=== PATIENT | female | born 1945 | race Caucasian/White ===

== ENCOUNTER 2017-01-19 08:52 | Day surgery (SDC) | payer MEDICARE, OTHER ==
[~2017-01-19] VITALS: Ht 165.1 cm; Wt 51.4 kg
[2017-01-19] VITALS (8 sets, daily range): BP systolic 107–131; BP diastolic 56–74; PULSE 75–84; TEMP 97.5–97.7
[2017-01-19] MEDS ORDERED: K-TAB10 PO (09:29)
[2017-01-19 10:15] LABS: MEAN CELL VOLUME 82 fl (80.0-100.0); MEAN CORPUSCULAR HGB CONC 32 g/dl (33.0-37.0); MEAN PLATELET VOLUME 8.4 fl (7.4-10.4); PLATELET COUNT 334 K/mm3 (130-400); RED BLOOD COUNT 3.95 M/mm3 (4.10-5.30); REDCELL DISTRIBUTION WIDTH-CV 16.8 % (11.5-14.5); WHITE BLOOD COUNT 10.7 K/mm3 (4.8-10.8)
[2017-01-19 10:16] LABS: HEMATOCRIT 32.4 % (37.0-47.0); HEMOGLOBIN 10.3 g/dl (12.5-16.0); MEAN CORPUSCULAR HEMOGLOBIN 26 pg (27.0-31.0)
[2017-01-19 10:22] LABS: INR 1.3 (0.8-3.0); PROTHROMBIN TIME 14.2 SECONDS (9.7-12.8)
[2017-01-19 10:24] LABS: PARTIAL THROMBOPLASTIN TIME 31.4 SECONDS (26.0-37.0)
[2017-01-19 10:28] LABS: CALCIUM 9.1 mg/dL (8.4-10.2); CREATININE, serum 0.78 mg/dL (0.52-1.25); POTASSIUM 4.4 mmol/L (3.4-5.0)
[2017-01-19] MEDS ORDERED: LASIX 20MG TABL20 MG PO (13:31)
[2017-01-19] MEDS ORDERED: PRILOSEC 20MG20 MG PO (13:32)
[2017-01-19] MEDS ORDERED: LIPITOR 40MG TA40 MG PO (13:33)
[2017-01-19] MEDS ORDERED: SYNTHROID0.125 MG/T PO (13:33)
[2017-01-19] MEDS ORDERED: MIRALAX PA17 GM/Dose PO (13:33)
[2017-01-19] MEDS ORDERED: NATURAL IRON65 MG PO (13:34)
[2017-01-19] MEDS ORDERED: PROAIR HFA0.09 MG/AC IH (13:36)
[2017-01-19] MEDS ORDERED: MAG-OX 400400 MG/TAB PO (13:36)
[2017-01-19] MEDS ORDERED: GLUCOPHAGE500 MG/TAB PO (13:37)
[2017-01-19] MEDS ORDERED: NORCO 325 MG-51 TAB PO (13:37)
[2017-01-19] MEDS ORDERED: CARAFATE 1GM1 G PO (13:38)
[2017-01-19] MEDS ORDERED: NITROSTAT0.4 MG/TAB SL (13:39)
[2017-01-19] MEDS ORDERED: LIDODERM 5% PATC1 EA TP (13:40)
== END 2017-01-19 18:15 | disposition home or self-care (01) ==
LOC: COL.CAR 08:52 → MEDICAL 08:54 → COL.CAR 18:15
PROVIDERS: Internal Medicine Interventional Cardiology
DX: I25.10 Atherosclerotic heart disease of native coronary artery without angina pectoris (principal); I21.4 Non-ST elevation (NSTEMI) myocardial infarction; I11.0 Hypertensive heart disease with heart failure; I50.9 Heart failure, unspecified; E03.9 Hypothyroidism, unspecified; E11.9 Type 2 diabetes mellitus without complications; J44.9 Chronic obstructive pulmonary disease, unspecified; E78.5 Hyperlipidemia, unspecified; Z87.891 Personal history of nicotine dependence
CPT/HCPCS: OP; C1760; C1887; C1894; J2250; J3010; Q9967

== ENCOUNTER 2017-05-23 13:27 | Inpatient (IN) | payer MEDICARE, OTHER ==
[~2017-05-23] VITALS: Ht 165.1 cm; Wt 50.7 kg
[~2017-05-23 13:27] MED LIST: CARAFATE 1GM1 G PO; COZAAR 25MG25 MG/TAB PO; GLUCOPHAGE500 MG/TAB PO; K-TAB10 PO; K-TAB20 PO; LASIX 20MG TABL20 MG PO; LIDODERM 5% PATC1 EA TP; LIPITOR 40MG TA40 MG PO; LOPRESSOR 225 MG/TAB PO; MAG-OX 400400 MG/TAB PO; MIRALAX PA17 GM/Dose PO; MULTI VITAMINS1 TAB PO; NATURAL IRON65 MG PO; NITRO-DUR0.1 MG/PAT TD; NITROSTAT0.4 MG/TAB SL; NORCO 325 MG-51 TAB PO; OMEGA-3 FISH1000 MG PO; PRILOSEC 20MG20 MG PO; PROAIR HFA0.09 MG/AC IH; RANEXA1000 MG PO; STOOL SOFTENER100 M2 PO; SYNTHROID0.125 MG/T PO; ZOFRAN 4MG T4 MG/TAB PO
[2017-05-23 13:56] VITALS: BP 120/63; PULSE 112; TEMP 97.3
[2017-05-23] MEDS ORDERED: ENTRESTO 24 MG1 EACH PO (14:15)
[2017-05-23 15:15] LABS: BASO # 0.1 (0.0-0.2); BASO % 0.5 % (0.0-2.0); EOS # 0.1 (0.0-0.7); EOS % 0.7 % (0-4.0); GRAN # 8.8 (1.4-6.5); GRAN % 81.5 % (42.2-75.2); HEMATOCRIT 29.9 % (37.0-47.0); HEMOGLOBIN 9.4 g/dl (12.5-16.0); LYMPH # 0.8 (1.2-3.4); LYMPH % 7.2 % (20.0-51.0); MEAN CELL VOLUME 86 fl (80.0-100.0); MEAN CORPUSCULAR HEMOGLOBIN 27 pg (27.0-31.0); MEAN CORPUSCULAR HGB CONC 31 g/dl (33.0-37.0); MEAN PLATELET VOLUME 9.2 fl (7.4-10.4); MONO % 9.6 % (1.7-9.3); PLATELET COUNT 315 K/mm3 (130-400); RED BLOOD COUNT 3.49 M/mm3 (4.10-5.30); REDCELL DISTRIBUTION WIDTH-CV 19.7 % (11.5-14.5)
[2017-05-23 15:20] LABS: CALCIUM 9.1 mg/dL (8.4-10.2); CREATININE, serum 0.98 mg/dL (0.52-1.25); POTASSIUM 4.5 mmol/L (3.4-5.0)
[2017-05-23 17:28] VITALS: BP 133/65; PULSE 87; TEMP 98
[2017-05-23 21:55] VITALS: BP 135/63; PULSE 79; TEMP 98.6
[2017-05-24] VITALS (7 sets, daily range): BP systolic 90–148; BP diastolic 46–91; PULSE 61–107; TEMP 97.3–98.4
[2017-05-24 06:54] LABS: CALCIUM 9.5 mg/dL (8.4-10.2); CREATININE, serum 0.97 mg/dL (0.52-1.25); POTASSIUM 3.7 mmol/L (3.4-5.0)
[2017-05-24 06:55] LABS: CHOLESTEROL RISK RATIO 3.8
[2017-05-25] VITALS (11 sets, daily range): BP systolic 94–129; BP diastolic 46–65; PULSE 76–88; TEMP 97.5–97.8
[2017-05-25 06:27] LABS: CALCIUM 9.3 mg/dL (8.4-10.2); CREATININE, serum 1.03 mg/dL (0.52-1.25); POTASSIUM 3.9 mmol/L (3.4-5.0)
[2017-05-25 15:08] LABS: BASO # 0.1 (0.0-0.2); BASO % 0.5 % (0.0-2.0); EOS % 0.3 % (0-4.0); GRAN # 8.1 (1.4-6.5); GRAN % 81.2 % (42.2-75.2); LYMPH # 0.8 (1.2-3.4); LYMPH % 8.5 % (20.0-51.0); MEAN CELL VOLUME 86 fl (80.0-100.0); MEAN CORPUSCULAR HGB CONC 32 g/dl (33.0-37.0); MEAN PLATELET VOLUME 9.4 fl (7.4-10.4); MONO # 0.9 (0.1-0.6); MONO % 9.2 % (1.7-9.3); PLATELET COUNT 393 K/mm3 (130-400); RED BLOOD COUNT 3.81 M/mm3 (4.10-5.30); REDCELL DISTRIBUTION WIDTH-CV 19.9 % (11.5-14.5)
[2017-05-25 15:14] LABS: HEMATOCRIT 32.6 % (37.0-47.0); HEMOGLOBIN 10.3 g/dl (12.5-16.0); MEAN CORPUSCULAR HEMOGLOBIN 27 pg (27.0-31.0)
[2017-05-25 15:18] LABS: INR 1.3 (0.8-3.0)
[2017-05-26 01:13] VITALS: BP 101/46; PULSE 65; TEMP 97.9
[2017-05-26 03:59] VITALS: BP 104/51; PULSE 73; TEMP 98.7
[2017-05-26 07:02] LABS: BASO # 0.1 (0.0-0.2); BASO % 0.6 % (0.0-2.0); EOS % 0.3 % (0-4.0); GRAN # 9.1 (1.4-6.5); GRAN % 84.4 % (42.2-75.2); LYMPH # 0.6 (1.2-3.4); LYMPH % 5.8 % (20.0-51.0); MEAN CELL VOLUME 85 fl (80.0-100.0); MEAN CORPUSCULAR HGB CONC 32 g/dl (33.0-37.0); MONO # 0.9 (0.1-0.6); MONO % 8.4 % (1.7-9.3); PLATELET COUNT 362 K/mm3 (130-400); RED BLOOD COUNT 3.59 M/mm3 (4.10-5.30); REDCELL DISTRIBUTION WIDTH-CV 19.2 % (11.5-14.5)
[2017-05-26 07:31] VITALS: BP 97/57; PULSE 75; TEMP 97.4
[2017-05-26 07:31] LABS: HEMATOCRIT 30.5 % (37.0-47.0); HEMOGLOBIN 9.6 g/dl (12.5-16.0); MEAN CORPUSCULAR HEMOGLOBIN 27 pg (27.0-31.0)
[2017-05-26 07:36] LABS: CALCIUM 9.3 mg/dL (8.4-10.2); CREATININE, serum 1.05 mg/dL (0.52-1.25); POTASSIUM 3.4 mmol/L (3.4-5.0)
[2017-05-26 12:38] VITALS: BP 107/70; PULSE 88; TEMP 97.7
[2017-05-26 17:33] VITALS: BP 136/79; PULSE 77; TEMP 97.6
[2017-05-26 19:59] VITALS: BP 119/65; PULSE 81; TEMP 98.6
[2017-05-27 00:35] VITALS: BP 152/96; PULSE 89; TEMP 98.3
[2017-05-27 04:40] VITALS: BP 118/55; PULSE 76; TEMP 98.7
[2017-05-27 07:19] VITALS: BP 111/54; PULSE 76; TEMP 97.5
[2017-05-27 07:44] LABS: CALCIUM 9.3 mg/dL (8.4-10.2); CREATININE, serum 1.24 mg/dL (0.52-1.25); POTASSIUM 3.4 mmol/L (3.4-5.0)
[2017-05-27] MEDS ORDERED: CLEOCIN HCL300 MG PO (11:07)
[2017-05-27] MEDS ORDERED: ASPIRIN 81M81 MG/TA2 PO (11:08)
[2017-05-27] MEDS ORDERED: TYLENOL 325MG325 MG PO (11:08)
[2017-05-27 11:09] VITALS: BP 106/48; PULSE 71; TEMP 97.2
== END 2017-05-27 12:03 | disposition home or self-care (01) | DRG 226 ==
LOC: MEDICAL 13:27 → PEDS 13:44 → MEDICAL 05-24 08:42
PROVIDERS: Internal Medicine Cardiovascular Disease; Internal Medicine Interventional Cardiology
PROC: 0JH609Z Insertion of Cardiac Resynchronization Defibrillator Pulse Generator into Chest Subcutaneous Tissue and Fascia, Open Approach (ICD-10-PCS; principal; 2017-05-25)
PROC: 02HK3KZ Insertion of Defibrillator Lead into Right Ventricle, Percutaneous Approach (ICD-10-PCS; 2017-05-25)
PROC: 02H63KZ Insertion of Defibrillator Lead into Right Atrium, Percutaneous Approach (ICD-10-PCS; 2017-05-25)
DX: I11.0 Hypertensive heart disease with heart failure (principal); E43 Unspecified severe protein-calorie malnutrition; J95.811 Postprocedural pneumothorax; E87.1 Hypo-osmolality and hyponatremia; Z68.1 Body mass index [BMI] 19.9 or less, adult; I50.23 Acute on chronic systolic (congestive) heart failure; I25.82 Chronic total occlusion of coronary artery; I42.0 Dilated cardiomyopathy; E11.9 Type 2 diabetes mellitus without complications; I25.10 Atherosclerotic heart disease of native coronary artery without angina pectoris; Z87.891 Personal history of nicotine dependence; E87.6 Hypokalemia
CPT/HCPCS: 99222; 99231-AI; A9284; C1769; C1777; C1882; C1894; C1898; J1650; J1940; J2250; J3010; J3370; J7030; J7040; J7050; J7060; Q9967